=== PATIENT | male | born 1940 | race Two or more races ===

== ENCOUNTER 2024-08-26 22:46 | Emergency (ER) | payer BC ==
[~2024-08-26] VITALS: Ht 177.8 cm; Wt 77.0 kg
[2024-08-26 22:55] VITALS: O2SAT 97
[2024-08-26] MEDS: SODIUM CHLORIDE 0.9% 1,000 ML IV ONE (23:31)
[2024-08-26 23:47] LABS: HEMATOCRIT. 43.5 % (42.0-52.0); HEMOGLOBIN. 15.1 g/dL (14.0-18.0); MEAN CORPUSCULAR HEMOGLOBIN 33.2 pg (28.0-32.0); MEAN CORPUSCULAR HGB CONC 34.7 g/dL (31.0-37.0); MEAN CORPUSCULAR VOLUME 95.6 fL (80.0-94.0); MEAN PLATELET VOLUME 8.4 fl (7.4-10.4); PLATELET 115 x1000/uL (130-400); RED BLOOD CELL COUNT 4.55 mill/uL (4.7-6.1); RED CELL DISTRIBUTION WIDTH 13.8 % (11.6-14.6); WHITE BLOOD COUNT 6.1 x1000/uL (4.5-11.0)
[2024-08-26 23:51] LABS: PARTIAL THROMBOPLASTIN TIME 23.4 sec (23.4-31.0); PROTHROMBIN TIME 11.1 sec (9.6-11.0)
[2024-08-26 23:53] LABS: CHLORIDE 102 mEq/L (98-107); POTASSIUM 4.6 mEq/L (3.5-5.1); SODIUM 135 mEq/L (136-145)
[2024-08-26 23:54] LABS: CALCIUM 8.9 mg/dL (8.7-10.4); CARBON DIOXIDE 24 mEq/L (21-32)
[2024-08-26 23:59] LABS: CREATININE 1.3 mg/dL (0.6-1.3); GLUCOSE 226 mg/dL (70-105); UREA NITROGEN BLOOD 20 mg/dL (9-23)
[2024-08-27 00:01] LABS: ALANINE AMINOTRANSFERASE 15 IU/L (10-49); ALBUMIN 4.2 g/dL (3.2-4.8); ASPARTATE AMINOTRANSFERASE 21 IU/L (<34); BILIRUBIN DIRECT 0.6 mg/dL (<=3.0); BILIRUBIN TOTAL 2.1 mg/dL (0.1-1.0); TROPONIN I HIGH SENSITIVITY 4 ng/L (3.0-53)
[2024-08-27 00:02] LABS: DIFFERENTIAL COMMENT 1
[2024-08-27 00:16] LABS: ETHANOL BLOOD < 10 mg/dL (<10)
[2024-08-27] MEDS: PIPERACILLIN/TAZO 3.375G/50ML 50 ML IV ONE (03:23)
[2024-08-27] MEDS: VANCOMYCIN 1G PREMIX 200 ML IV ONE (03:49)
[2024-08-27] MEDS ORDERED: CIPR-263 MT (04:21)
[2024-08-27] MEDS ORDERED: METR-167 MT (04:21)
[2024-08-27 04:45] VITALS: BP 116/70; PULSE 81; RESP 16; TEMP 36.9; O2SAT 97
[2024-08-27 17:05] LABS: PLATELET ESTIMATE DECREASED
== END 2024-08-27 05:09 | disposition left against medical advice (07) ==
LOC: ER 22:46 → EDBEDREQTM 08-27 02:59 → EDBEDREQ 08-27 02:59 → EDBEDREQDT 08-27 02:59 → ER 08-27 05:09
DX: R55 Syncope and collapse (principal); K63.89 Other specified diseases of intestine; F10.90 Alcohol use, unspecified, uncomplicated; I25.10 Atherosclerotic heart disease of native coronary artery without angina pectoris; I67.82 Cerebral ischemia; J44.9 Chronic obstructive pulmonary disease, unspecified; Z55.6 Problems related to health literacy; Z95.0 Presence of cardiac pacemaker; Y90.9 Presence of alcohol in blood, level not specified
CPT/HCPCS: 80076; 80048; 80320; 83880; 83690; 85025; 85610; 85730; 84484; 36415; 71045; 93005; 96361; 99285; 70450; 74176; 76700; 96367; 96365; J7030; J2543; J3370; G0480